=== PATIENT | male | born 1945 | race Caucasian/White ===

== ENCOUNTER 2016-07-09 12:34 | Emergency (ER) | payer MEDICARE, BC ==
[2016-07-09 13:33] LABS: HEMATOCRIT 48.9 % (37.9-51.0); HEMOGLOBIN 16.6 g/dL (13.5-17.0); HGB HCT DIFFERENCE 0.9; MEAN CORPUSCULAR HEMOGLOBIN 32.3 pg (27.0-33.4); MEAN CORPUSCULAR HGB CONC 33.9 g/dL (32.0-36.0); MEAN CORPUSCULAR VOLUME 95 fl (80-97); RED BLOOD COUNT 5.13 10^6/uL (4.35-5.55); RED CELL DISTRIBUTION WIDTH 13.1 % (11.5-14.0); WHITE BLOOD COUNT 13.8 10^3/uL (4.0-10.5)
--- NOTE | 2016-07-09 13:50 | ER Document Report ---
ED General <DANE BURNETTE - Last Filed: 07/09/16 23:59> - General TRAVEL OUTSIDE OF THE [place] IN LAST 30 DAYS: No <CHING HAMILTON - Last Filed: 07/13/16 17:46> - General Chief Complaint: Nausea/Vomiting Stated Complaint: NAUSEA Notes: This is a 70-year-old male with a history of rheumatoid arthritis that presents today with a history of nausea and vomiting since Saturday morning. He states that he woke up at 0800 and states that he had whole-body aches and felt tired; however throughout the day he started to have diarrhea nausea and vomiting. Denies hematochezia or hematemesis. Saturday evening he stopped vomiting but continued to have diarrhea. Today he states he had 4 bowel movements. Currently denies nausea fever chills abdominal pain chest pain. (CHING HAMILTON) - Related Data Allergies/Adverse Reactions: methotrexate Allergy (Verified 07/09/16 12:47) Past Medical History - General Information source: Patient - Social History Smoking Status: Unknown if Ever Smoked Chew tobacco use (# tins/day): No Frequency of alcohol use: None Drug Abuse: None Family History: Reviewed & Not Pertinent Patient has suicidal ideation: No Patient has homicidal ideation: No Past Surgical History: Reports: Hx Cholecystectomy - Immunizations Hx Diphtheria, Pertussis, Tetanus Vaccination: No <CHING HAMILTON - Last Filed: 07/13/16 17:46> Review of Systems - Review of Systems Constitutional: denies: Chills, Fever EENT: No symptoms reported Cardiovascular: denies: Chest pain Respiratory: denies: Cough, Hurts to breathe Gastrointestinal: denies: Abdominal pain Genitourinary: denies: Burning Male Genitourinary: No symptoms reported, Testicular pain Musculoskeletal: No symptoms reported Skin: No symptoms reported Hematologic/Lymphatic: No symptoms reported Neurological/Psychological: No symptoms reported. denies: Confusion, Weakness <CHING HAMILTON - Last Filed: 07/13/16 17:46> Physical Exam - General General appearance: Appears well, Alert - HEENT Head: Normocephalic, Atraumatic Eyes: Normal Conjunctiva: Normal Cornea: Normal - Respiratory Respiratory status: No respiratory distress Breath sounds: Normal. No: Rales, Rhonchi, Stridor, Wheezing - Cardiovascular Rhythm: Regular Heart sounds: Normal auscultation - Abdominal Inspection: Normal Distension: Distended - Patient stated that his abdomen always looks distended. Bowel sounds: Normal Tenderness: Nontender - Back Back: Normal. No: CVA tenderness - Extremities General upper extremity: Normal inspection General lower extremity: Normal inspection - Neurological Cognition: Normal. No: Confused - Psychological Associated symptoms: Normal affect, Normal mood - Skin Skin Temperature: Warm Skin Moisture: Dry Skin Color: Normal <CHING HAMILTON - Last Filed: 07/13/16 17:46> - Vital signs Vitals: Temp Pulse Resp BP Pulse Ox 97.5 F 75 18 120/58 L 96 07/09/16 12:35 07/09/16 12:35 07/09/16 12:35 07/09/16 12:35 07/09/16 12:35 (DANE BURNETTE) (CHING HAMILTON) Course - Laboratory Result Diagrams: 07/09/16 22:30 07/09/16 13:20 <DANE BURNETTE - Last Filed: 07/09/16 23:59> - Laboratory Result Diagrams: 07/09/16 22:30 07/09/16 13:20 <CHING HAMILTON - Last Filed: 07/13/16 17:46> - Re-evaluation Re-evalutation: I was introduced to the patient at bedside by Angeles Hamilton PA-C. Patient still having occasional diarrhea, however after IV fluids, he is sitting up straight, smiling, drinking oral fluids, states he feels great. Concern for possible raw food exposure, stool culture sent. Because of bandemia with leukocytosis, CBC was repeated, repeat CBC is very unremarkable, indeterminate troponin in a patient did have hypotension but no chest pain, shortness of breath, or other reported symptoms, shows downtrending. Patient and are adamant now, stating they will stay no longer and must leave. Patient given Zofran, a few [place] to help with the diarrhea, advised to follow with primary care and return immediately if he worsens in any way including fever, severe abdominal pain, etc. Patient states satisfaction agreement. Patient ambulated without difficulty from the department. Dane Burnette PA-C (DANE BURNETTE) 07/09/16 21:06 Patient has a blood pressure of 126/69 pulse of 88. A she denies abdominal pain chest pain fever chills nausea and vomiting. Patient stated that he had 2 bowel movements here, has lessened greatly. Patient's stated that he's been eating raw oysters and shellfish over the past week. Prior to admission patient stated that he would have a bowel movement every 15 minutes. Patient stated that he feels much better after the 2 fluid boluses. Patient currently states that he is asymptomatic. EKG show sinus rhythm with rate of 91 left axis deviation T wave inversions in 1 and aVL. (CHING HAMILTON) - Vital Signs Vital signs: Temp Pulse Resp BP Pulse Ox 98.1 F 93 18 123/66 95 07/09/16 23:15 07/09/16 23:15 07/09/16 23:15 07/09/16 23:15 07/09/16 23:15 (DANE BURNETTE) (CHING HAMILTON) - Laboratory Laboratory results interpreted by fl: 07/09/16 07/09/16 07/09/16 13:20 13:20 13:20 WBC 13.8 H Plt Count 90 L Seg Neutrophils % Band Neutrophils % 26 H Lymphocytes % Lymphocytes % (Manual) 5 L Monocytes % (Manual) 2 L Metamyelocytes % 1 H Absolute Neutrophils Abs Neuts (Manual) 12.8 H Sodium 134.6 L Carbon Dioxide 18 L BUN 34 H Creatinine 1.37 H Est GFR (Non-Af Amer) 51 L Glucose 182 H Calcium 8.3 L Total Bilirubin 1.5 H Creatine Kinase 172 H Total Protein 5.7 L 07/09/16 22:30 WBC Plt Count 103 L Seg Neutrophils % 86.4 H Band Neutrophils % Lymphocytes % 5.3 L Lymphocytes % (Manual) Monocytes % (Manual) Metamyelocytes % Absolute Neutrophils 8.9 H Abs Neuts (Manual) Sodium Carbon Dioxide BUN Creatinine Est GFR (Non-Af Amer) Glucose Calcium Total Bilirubin Creatine Kinase Total Protein (DANE BURNETTE) Discharge <DANE BURNETTE - Last Filed: 07/09/16 23:59> <CHING HAMILTON - Last Filed: 07/13/16 17:46> - Discharge Clinical Impression: Dehydration, Nausea vomiting and diarrhea Condition: Stable Disposition: HOME, SELF-CARE Additional Instructions: We have a stool culture growing in our lab, continue to hydrate, take the medication given if needed, start with bland food (soup, crackers, toast, rice) . I would avoid any heavy or products such as heavy protein or dairy until your symptoms have resolved. Follow-up with primary care. Return immediately for any concerning or worsening symptoms including severe abdominal pain, fever, inability to stop vomiting or stay hydrated, or any other concerning symptoms. Prescriptions: Ondansetron [Zofran Odt 4 mg Tablet] 1 - 2 tab PO Q4H PRN #15 tab.rapdis PRN Reason: For Nausea/Vomiting Referrals: EDMOND DOLAN MD [Primary Care Provider] - Follow up as needed
[2016-07-09 14:09] LABS: BAND NEUTROPHILS % (MANUAL) 26 % (3-5); BASOPHILS % (MANUAL) 0 % (0-2); EOSINOPHILS % (MANUAL) 0 % (0-6); LYMPHOCYTES % (MANUAL) 5 % (13-45); TOTAL CELLS COUNTED 100
[2016-07-09 14:10] LABS: ACANTHOCYTES SLIGHT; POIKILOCYTOSIS SLIGHT
[2016-07-09 14:15] LABS: ALANINE AMINOTRANSFERASE 50 U/L (21-72); ALBUMIN 3.5 g/dL (3.5-5.0); ALKALINE PHOSPHATASE 59 U/L (38-126); ANION GAP 17 (5-19); ASPARTATE AMINO TRANSFERASE 51 U/L (17-59); BILIRUBIN,TOTAL 1.5 mg/dL (0.2-1.3); BLOOD UREA NITROGEN 34 mg/dL (7-20); CALCIUM 8.3 mg/dL (8.4-10.2); CARBON DIOXIDE 18 mmol/L (22-30); CHLORIDE 100 mmol/L (98-107); CREATININE RESULT 1.37 mg/dL (0.52-1.25); GLUCOSE 182 mg/dL (75-110); POTASSIUM 4.8 mmol/L (3.6-5.0); SODIUM 134.6 mmol/L (137-145); TOTAL PROTEIN 5.7 g/dL (6.3-8.2)
[2016-07-09] MEDS ORDERED: NORMAL SALINE 1000 ML 1,000 ML IV ONE ×2 (15:53→22:59)
[2016-07-09 15:54] LABS: CREATINE KINASE MB 4.42 ng/mL (<4.55)
[2016-07-09 15:58] LABS: TROPONIN I 0.05 ng/mL
[2016-07-09] MEDS ORDERED: ASPIRIN 325 MG TABLET PO ONE (16:04)
--- NOTE | 2016-07-09 22:03 | EKG REPORT ---
SEVERITY:- ABNORMAL ECG - SINUS RHYTHM LEFT ANTERIOR FASCICULAR BLOCK LVH WITH SECONDARY REPOLARIZATION ABNORMALITY CONSIDER ANTERIOR INFARCT VS LAHB CHANGES : Confirmed by: Maricarmen Bowen 09-Jul-2016 22:02:41
[2016-07-09 22:40] LABS: ABSOLUTE MONOCYTES (AUTO) 0.8 10^3/uL (0.1-1.4); BASOPHILS % (AUTO) 0.3 % (0-2); HEMOGLOBIN 16.1 g/dL (13.5-17.0)
[2016-07-09 22:43] LABS: ABSOLUTE LYMPHOCYTES (AUTO) 0.5 10^3/uL (0.5-4.7); ABSOLUTE NEUT (AUTO) 8.9 10^3/uL (1.7-8.2); EOSINOPHILS % (AUTO) 0.2 % (0-6); HEMATOCRIT 46.7 % (37.9-51.0); HGB HCT DIFFERENCE 1.6; LYMPHOCYTES % (AUTO) 5.3 % (13-45); MEAN CORPUSCULAR HEMOGLOBIN 32.7 pg (27.0-33.4); MEAN CORPUSCULAR HGB CONC 34.5 g/dL (32.0-36.0); MEAN CORPUSCULAR VOLUME 95 fl (80-97); MONOCYTES % (AUTO) 7.8 % (3-13); RED BLOOD COUNT 4.94 10^6/uL (4.35-5.55); SEGMENTED NEUTROPHILS % (AUTO) 86.4 % (42-78); WHITE BLOOD COUNT 10.4 10^3/uL (4.0-10.5)
[2016-07-09] MEDS ORDERED: HYDROCODONE/ACETAMINOPHEN 5-325 MG TABLET PO ONE (23:03)
[2016-07-09] MEDS ORDERED: HYDROCODONE/ACETAMINOPHEN 5-325 MG 6 TAB/DSPK PO PRN (23:03)
[2016-07-09 23:26] VITALS: BP 123/66
== END 2016-07-09 23:28 | disposition home or self-care (01) ==
LOC: ER 12:34
DX: E86.0 Dehydration (principal); R11.2 Nausea with vomiting, unspecified; R19.7 Diarrhea, unspecified
CPT/HCPCS: 93005; 99284; 96360; 96361; 36415; 87045; 87205; 82553; 82550; 85025; 87077; 80053; 84484; 93010; A9270 ×3; J7030